=== PATIENT | female | born 1970 | race Caucasian/White ===

== ENCOUNTER → 2018-04-03 14:13 | Outpatient (CLI) | payer OTHER, SELFPAY | PROVIDERS: Family Provider Internal Medicine; PCP Internal Medicine; Referring Provider Internal Medicine; Visit Provider Internal Medicine | DX: R09.82 Postnasal drip (principal) | CPT/HCPCS: 87807 ==

== ENCOUNTER → 2021-01-08 | Outpatient (CLI) | payer OTHER, SELFPAY ==
[2021-01-08 12:54] LABS: Absolute Lymphocyte Count 1.41 X10^3/uL (0.83-4.51); Absolute Neutrophil Count 3.8 X10^3/uL (2.0-7.7); Basophil# 0.04 X10^3/uL; Basophil% 0.7 % (0-1); Eosinophil# 0.03 X10^3/uL; Eosinophils% 0.5 % (0-5); Hematocrit 41.9 % (37-47); Hemoglobin 13.5 g/dL (12.0-15.0); Lymphocyte # 1.41 X10^3/ul (0.83-4.51); Lymphocyte % 24.4 % (19-41); Mean Corp Hgb Conc 32.2 g/dL (32-36); Mean Corpuscular Hgb 29.5 pg (27.0-32.0); Mean Corpuscular Volume 91.7 fL (81-99); Mean Platelet Vol. 10.5 fl (6.2-12.0); Monocyte# 0.48 X10^3/uL; Monocyte% 8.3 % (0-10); NRBC Flagged by Analyzer 0 % (0-5); Neutrophil # 3.82 X10^3/uL (2.7-7.7); Neutrophil % 65.9 % (47-70); Platelet Count 360 K/mm3 (150-450); RBC Distribution Width CV 12.5 % (11.6-14.6); RBC Distribution Width SD 41.7 fl (35.1-43.9); Red Blood Count 4.57 M/mm3 (4.2-5.4); White Blood Count 5.8 K/mm3 (4.4-11.0)
[2021-01-08 13:09] LABS: AST(SGOT) 19 U/L (15-37); Alanine Aminotransfer ALT/SGPT 34 U/L (13-56); Albumin, Serum 3.5 g/dL (3.2-5.0); Alkaline Phosphatase 59 U/L (45-117); Anion Gap 4 (5-15); BUN 12 mg/dL (7-18); BUN/Creat Ratio 15.2 RATIO (10-20); Calcium,Total 8.5 mg/dL (8.5-10.1); Chloride 107 mmol/L (98-107); Cholesterol 184 mg/dL (200); Creatinine, Serum 0.79 mg/dL (0.55-1.02); EST Glomerular Filtration Rate 82 mL/min (>60); Est Glom Filt Rate - Afr Amer 99 mL/min (>60); Globulin 3.6 g/dL (2.2-4.2); Glucose 87 mg/dL (74-106); High Density Lipoprotein 62 mg/dL; Potassium 4.5 mmol/L (3.5-5.1); Protein, Total 7.1 g/dL (6.4-8.2); Sodium Level 138 mmol/L (136-145); Thyroid Stim Hormone (TSH) 0.63 uIU/mL (0.358-3.74); Triglycerides 118 mg/dL; Very Low Density Lipoprotein 24 mg/dL (5-40)
== END | disposition home or self-care (01) ==
LOC: LABSPEC 12:09
PROVIDERS: PCP Internal Medicine; Referring Provider Internal Medicine; Visit Provider Internal Medicine
DX: K76.0 Fatty (change of) liver, not elsewhere classified (principal); F41.9 Anxiety disorder, unspecified; Z13.220 Encounter for screening for lipoid disorders
CPT/HCPCS: 80053; 80061; 84443; 85025

== ENCOUNTER 2021-02-24 06:10 | Day surgery (SDC) | payer OTHER, SELFPAY ==
[2021-02-24] VITALS (7 sets, daily range): BP systolic 103–117; BP diastolic 60–85; PULSE 62–87; RESP 16; TEMP 36.1–36.7; O2SAT 97–100; BMI 22.9
[2021-02-24] MEDS: Lactated Ringers 1,000 ML 15 ML IV (06:30)
[2021-02-24 06:54] LABS: Internal QC Validated? YES +Cl - CLEAR BKGD; Pregnancy, Urine Negative Negative
--- NOTE | 2021-02-24 07:09 | PCM.HP.BLA ---
History and Physical Date of Admission: 02/24/21 Anette amaral a pleasant pleasant 50-year-old arrives here for screening colonoscopy. She has past medical history of mild depression. She does not have any problems with her bowels. She has no family history of colon cancer. She denies any constipation or diarrhea. She was identified as having a sigmoid diverticulosis from a CT scan that was done back in 2016. At this time she is not having any bleeding, constipation or change in bowel habits. She denies any abdominal pain or cramping. Past medical history-mild depression Past surgical history -negative Allergies-no known drug allergies Social history-negative alcohol and drugs Medications-calcium plus vitamin D once daily, multivitamin once daily, Lexapro 10 mg once daily, spironolactone 100 mg daily, norethindrone plus estradiol once daily Physical examination-blood pressure 117/74, pulse of 74, respiratory rate is 16, temperature is 96.9, she satting 100% on room air On HEENT-normocephalic atraumatic Respiratory-clear to auscultation bilaterally Cardiovascular -no murmurs rubs or gallops Abdomen-soft nontender nondistended Extremities-no clubbing cyanosis or edema Assessment and plan: 50-year-old arrives here for screening colonoscopy. She was explained alternatives, risk, benefits including and not withstanding bleeding, infection, sepsis, perforation, need for emergent surgery . She will have an ASA of 1.
--- NOTE | 2021-02-24 07:15 | COLBX_PTH ---
PATIENT: VINCENT MAYO LOC: EN U#:[id number] AGE/SX: 50/F ROOM: RE02/24/[address]: Dr. Eliel Busby DO : 1970 BED: DIS: 02/24/2021 SPEC #: [id number] RECD: 02/24/21 10:33 STATUS: TARI GABRIEL #: [id number] VERO: 02/24/21 07:[address]: Eliel Busby DEPT: SURGICAL PATHOLOGY RECD BY: Myra Padilla ENTERED: 02/24/21 11:11 SP TYPE: COLON BX OTHR DR: Dr. Eliana Braden DO Tissues: Sigmoid colon biopsy Procedures: Surgery Specimen Level IV HEADER OPERATION: Colonoscopy ? open access (MAC) PRE-OP DIAGNOSIS: Screening TISSUE SUBMITTED: Sigmoid polyp biopsy MICROSCOPIC DIAGNOSIS Sigmoid polyp, biopsy: Fragments of colonic mucosa, no pathologic diagnosis. SJ:reyna 02/25/2021 MICROSCOPIC DESCRIPTION Slides are reviewed. GROSS DESCRIPTION Received in fixative is one container labeled with the patient's name and designated sigmoid polyp biopsy. The specimen consists of two irregular fragments of light merida soft tissue that in aggregate measure 0.5 x 0.3 x 0.1 cm. The specimen is totally submitted in one cassette. / SJ:reyna 02/24/21 TC:4 CPT: 65877
--- NOTE | 2021-02-24 07:44 | OP.CCLET_ITS ---
12/01/2021 Eliana Braden [address] [place] [address] Re : Colonoscopy procedure for Anette Melgoza Dear Dr. Braden This procedure was performed on Wednesday, February 24, 2021. My impressions and recommendations are as follows: Impressions : - Mild diverticulosis in the sigmoid colon, in the descending colon and at the splenic flexure. There was no evidence of diverticular bleeding. - One 5 mm polyp in the sigmoid colon, removed with a cold biopsy forceps. Resected and retrieved. - The examined portion of the ileum was normal. Recommendations : - Discharge patient to home. - Resume previous diet. - Continue present medications. - Await pathology results. - Repeat colonoscopy in 5 years for surveillance. - Return to GI office PRN. My findings are described in the full procedure note, which is enclosed. If I can be of further assistance, please feel free to contact me at . Sincerely, Eliel Busby DO 02/24/2021 7:43:43 AM This report has been signed electronically.
--- NOTE | 2021-02-24 07:44 | OP.COLON_ITS ---
Patient Name: Anette Melgoza Procedure Date: 02/24/2021 7:13 AM Date of : 1970 Age: 50 Procedure: Colonoscopy Indications: Screening for colorectal malignant neoplasm Providers: Eliel Busby DO Medicines: See the Anesthesia note for documentation of the administered medications Patient Profile: This is a 50 year old female. Refer to note in patient chart for documentation of history and physical. Last Colonoscopy: none. The patient's first colonoscopy is today. Complications: No immediate complications. Procedure: Pre-Anesthesia Assessment: - Prior to the procedure, a History and Physical was performed, and patient medications and allergies were reviewed. The patient is competent. The risks and benefits of the procedure and the sedation options and risks were discussed with the patient. All questions were answered and informed consent was obtained. Patient identification and proposed procedure were verified by the physician in the pre-procedure area. Mental Status Examination: alert and oriented. Airway Examination: normal oropharyngeal airway and neck mobility. Respiratory Examination: clear to auscultation. CV Examination: normal. Prophylactic Antibiotics: The patient does not require prophylactic antibiotics. Prior Anticoagulants: The patient has taken no previous anticoagulant or antiplatelet agents. ASA Grade Assessment: II - A patient with mild systemic disease. After reviewing the risks and benefits, the patient was deemed in satisfactory condition to undergo the procedure. The anesthesia plan was to use moderate sedation / analgesia (conscious sedation). Immediately prior to administration of medications, the patient was re-assessed for adequacy to receive sedatives. The heart rate, respiratory rate, oxygen saturations, blood pressure, adequacy of pulmonary ventilation, and response to care were monitored throughout the procedure. The physical status of the patient was re-assessed after the procedure. After I obtained informed consent, the scope was passed under direct vision. Throughout the procedure, the patient's blood pressure, pulse, and oxygen saturations were monitored continuously. The Colonoscope was introduced through the anus and advanced to the terminal ileum, with identification of the appendiceal orifice and IC valve. The colonoscopy was performed without difficulty. The patient tolerated the procedure well. The quality of the bowel preparation was good. Moderate Sedation: Moderate (conscious) sedation was administered by the endoscopy nurse and supervised by the endoscopist. The patient's oxygen saturation, heart rate, blood pressure and response to care were monitored. Total physician intraservice time was 15 minutes. Scope In: 7:24:08 AM Scope Withdrawal Time 0 hours 12 minutes 6 seconds Scope Out: 7:38:32 AM Total Procedure Duration Time 0 hours 14 minutes 24 seconds Findings: The perianal and digital rectal examinations were normal. Multiple small and large-mouthed diverticula were found in the sigmoid colon, descending colon and splenic flexure. There was no evidence of diverticular bleeding. A 5 mm polyp was found in the sigmoid colon. The polyp was sessile. The polyp was removed with a cold biopsy forceps. Resection and retrieval were complete. Verification of patient identification for the specimen was done. Estimated blood loss was minimal. The terminal ileum appeared normal. Impression: - Mild diverticulosis in the sigmoid colon, in the descending colon and at the splenic flexure. There was no evidence of diverticular bleeding. - One 5 mm polyp in the sigmoid colon, removed with a cold biopsy forceps. Resected and retrieved. - The examined portion of the ileum was normal. Recommendation: - Discharge patient to home. - Resume previous diet. - Continue present medications. - Await pathology results. - Repeat colonoscopy in 5 years for surveillance. - Return to GI office PRN. Procedure Code(s): --- Professional --- 93938, Colonoscopy, flexible; with biopsy, single or multiple G0500, Moderate sedation services provided by the same physician or other qualified health senior care assistant performing a gastrointestinal endoscopic service that sedation supports, requiring the presence of an independent trained observer to assist in the monitoring of the patient's level of consciousness and physiological status; initial 15 minutes of intra-service time; patient age 5 years or older (additional time may be reported with 04851, as appropriate) CPT copyright 2017 [employer]. All rights reserved. The codes documented in this report are preliminary and upon property management bookkeeper review may be revised to meet current compliance requirements. Eliel Busby DO 02/24/2021 7:43:43 AM This report has been signed electronically. Number of Addenda: 1 Note Initiated On: 02/24/2021 7:13 AM Addendum Number: 1 Addendum Date: 12/01/2021 6:55:31 AM MAC was used instead of moderate sedation for the patient. Eliel Busby DO 12/01/2021 6:55:43 AM This report has been signed electronically.
== END 2021-02-24 08:17 ==
LOC: EN 06:13 → AC 06:14
PROVIDERS: Anesthesiology; PCP Internal Medicine; Referring Provider Internal Medicine; Visit Provider Internal Medicine Gastroenterology
PROC: 0DJD8ZZ Inspection of Lower Intestinal Tract, Via Natural or Artificial Opening Endoscopic (ICD-10-PCS; CPT 45378; principal; 2021-02-24 07:10)
DX: Z12.11 Encounter for screening for malignant neoplasm of colon (principal); K63.5 Polyp of colon; K57.30 Diverticulosis of large intestine without perforation or abscess without bleeding; F32.A Depression, unspecified; F41.9 Anxiety disorder, unspecified; Z79.899 Other long term (current) drug therapy; Z87.19 Personal history of other diseases of the digestive system
CPT/HCPCS: 45380; 81025; 88305; J7120; J2405

== ENCOUNTER 2021-05-04 15:27 | Outpatient (CLI) | payer OTHER, SELFPAY ==
[2021-05-04 15:56] LABS: Absolute Neutrophil Count 3.7 X10^3/uL (2.0-7.7); Basophil# 0.04 X10^3/uL; Basophil% 0.7 % (0-1); Eosinophil# 0.01 X10^3/uL; Eosinophils% 0.2 % (0-5); Lymphocyte % 24.3 % (19-41); Mean Corp Hgb Conc 34.1 g/dL (32-36); Mean Corpuscular Hgb 30.8 pg (27.0-32.0); Mean Corpuscular Volume 90.1 fL (81-99); Mean Platelet Vol. 9.9 fl (6.2-12.0); Monocyte# 0.54 X10^3/uL; Monocyte% 9.4 % (0-10); NRBC Flagged by Analyzer 0 % (0-5); Neutrophil # 3.74 X10^3/uL (2.7-7.7); Neutrophil % 65.1 % (47-70); Platelet Count 360 K/mm3 (150-450); RBC Distribution Width CV 12.4 % (11.6-14.6); RBC Distribution Width SD 41.3 fl (35.1-43.9); Red Blood Count 4.55 M/mm3 (4.2-5.4); White Blood Count 5.8 K/mm3 (4.4-11.0)
[2021-05-04 16:16] LABS: D-Dimer Quantitative (DVT/PE) 0.52 FEU/ug/m (0.27-0.49)
[2021-05-04 16:19] LABS: ALB/GLOB Ratio 0.9 RATIO (0.9-2.4); AST(SGOT) 16 U/L (15-37); Alanine Aminotransfer ALT/SGPT 25 U/L (13-56); Albumin, Serum 3.5 g/dL (3.2-5.0); Alkaline Phosphatase 69 U/L (45-117); Anion Gap 6 (5-15); BUN 10 mg/dL (7-18); BUN/Creat Ratio 10.8 RATIO (10-20); CPK Total, Creatine Kinase 126 U/L (26-192); Chloride 107 mmol/L (98-107); Creatinine, Serum 0.92 mg/dL (0.55-1.02); EST Glomerular Filtration Rate 68 mL/min (>60); Est Glom Filt Rate - Afr Amer 83 mL/min (>60); Globulin 3.7 g/dL (2.2-4.2); Glucose 144 mg/dL (74-106); Lipase 206 U/L (73-393); Potassium 3.7 mmol/L (3.5-5.1); Protein, Total 7.2 g/dL (6.4-8.2); Sodium Level 140 mmol/L (136-145); Thyroid Stim Hormone (TSH) 0.81 uIU/mL (0.358-3.74); Troponin-I HS 5 pg/mL (3.0-54.0)
== END 2021-05-04 23:59 | disposition home or self-care (01) ==
PROVIDERS: PCP Internal Medicine; Referring Provider Internal Medicine; Visit Provider Internal Medicine
DX: R53.83 Other fatigue (principal); R07.9 Chest pain, unspecified
CPT/HCPCS: 85025; 85379